=== PATIENT | female | born 1995 | race American Indian/Alaskan Native ===

== ENCOUNTER 2024-03-26 21:52 | Emergency (ER) | payer MEDICAID, SELFPAY ==
[2024-03-26 21:55] VITALS: BMI 20.7
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
[2024-03-26 22:13] VITALS: BP 142/92; PULSE 100; RESP 16; TEMP 36.7; O2SAT 99
== END 2024-03-26 22:17 ==
LOC: SERX 23:10
PROVIDERS: Emergency Provider Emergency Medicine
DX: Z02.89 Encounter for other administrative examinations (principal)
CPT/HCPCS: 99281

== ENCOUNTER 2024-07-26 00:30 | Emergency (ER) | payer MEDICAID, SELFPAY ==
[2024-07-26 00:39] VITALS: BP 124/82; PULSE 79; RESP 19; TEMP 36.9; O2SAT 97
--- NOTE | 2024-07-26 00:48 | XR_ITS ---
Examination: Complete OB ultrasound, less than 14 weeks, transabdominal Date and time of exam: July 26, 2024 0018 hrs. Indications: Onset vaginal bleeding beginning 4 days ago Technique: Obstetrical ultrasound images less than 14 weeks performed via transabdominal imaging Findings: Uterus 10.3 cm no endometrial stripe Intrauterine gestational sac 2.0 cm corresponds to 6 week 6 day gestational age No pole No cardiac activity Right ovary 3.3 cm arterial flow Left ovary 3.0 cm arterial flow Impression: Empty intrauterine gestational sac corresponding to 6 week 6 day gestational age Recommend transvaginal pelvic sonography follow-up to exclude embryonic demise
[2024-07-26 01:09] LABS: Collection Type, Urine Clean Catch
[2024-07-26 01:11] LABS: Basophils # (Auto) 0.1 Thou/mm3 (0.0-0.2); Basophils % (Auto) 0 % (0-2.5); Eosinophils # (Auto) 0.1 Thou/mm3 (0.0-0.5); Eosinophils % (Auto) 1 % (0-10); Hematocrit 42.1 % (36.0-46.0); Hemoglobin 14.5 g/dL (12.0-16.0); Immature Granulocytes % (Auto) 0 % (0-0); Immature Granulocytes Auto 0.03 Thou/mm3 (0.00-0.00); Lymphocytes # (Auto) 3.2 Thou/mm3 (1.0-4.8); Lymphocytes % (Auto) 24 % (10-50); Mean Corpuscular HGB Conc 34.4 g/dl (31.0-37.0); Mean Corpuscular Hemoglobin 32.2 pg (25.0-35.0); Mean Corpuscular Volume 93 fL (80-100); Monocytes # (Auto) 0.9 Thou/mm3 (0.0-0.8); Monocytes % (Auto) 6 % (0-12); Neutrophils # (Auto) 9.4 Thou/mm3 (1.8-7.7); Neutrophils % (Auto) 68 % (37-80); Nucleated Red Blood Cell % 0 /100 WBC (0); Platelet Count 300 Thou/mm3 (140-440); RDW Standard Deviation 45.4 fL (36.4-46.3); Red Blood Count 4.51 Miln/mm3 (4.00-5.20); White Blood Count 13.7 Thou/mm3 (3.6-11.0)
[2024-07-26 01:15] LABS: Bilirubin,Urine Negative (Negative); Blood,Urine 2+ (Negative); Clarity,Urine Turbid (Clear/Hazy); Color,Urine Lt-Yellow (Lt Yel-Yel); Culture Indicated,Urine Not Indicated; Glucose, Urine Negative (Negative); Ketones,Urine Negative (Negative); Leukocyte Esterase,Urine Positive (Negative); Nitrite,Urine Negative (Negative); Protein,Urine Negative (Neg - Trace); RBC,Urine 1 /hpf (0-3); Specific Gravity,Urine 1.017 (1.001-1.035); Squamous Epithelial Cell,Urine 14 /hpf (0-5); Urobilinogen,Urine Negative mg/dL (0.0-1.0); WBC,Urine 3 /hpf (0-5)
[2024-07-26 01:47] LABS: Alanine Aminotransferase 16 U/L (10-49); Albumin, Serum 4.7 gm/dL (3.5-5.0); Albumin/Globulin Ratio 1.3 (1.2-2.2); Alkaline Phosphatase 43 U/L (46-116); Anion Gap 10 (7-16); Aspartate Amino Transferase 27 U/L (0-34); BUN/Creatinine Ratio 7 Ratio (12-20); Bilirubin,Total 1.3 mg/dL (0.3-1.2); Blood Urea Nitrogen 5 mg/dL (9-23); Carbon Dioxide 26.1 mMol/L (20.0-31.0); Chloride 105 mMol/L (98-107); Creatinine (Component) 0.7 mg/dL (0.6-1.3); Globulin 3.5 gm/dL (2.3-3.5); Glucose 89 mg/dL (74-106); Osmolality,Calculated 277 (275-295); Sodium 141 mMol/L (136-145); Total Protein 8.2 gm/dL (5.7-8.2); eGFR > 60 See Note
--- NOTE | 2024-07-26 03:14 | PRELIM_ITS ---
Obstetric ultrasound (transabdominal ) with doppler and wave doppler spectral analysis. July 26, 2024 0148 hours Clinical history: Pain, bleeding; 9-10 weeks Technique: Real-time ultrasound was performed using Duplex scanning including arterial inflow, venous outflow, color and spectral Doppler analysis of both ovaries. Comparison: None. Findings: There is an intrauterine gestational sac corresponding to a gestational age 6 weeks and 6 days (MSD = 1.95 cm). The pole is not visualized. The yolk sac is not utilized. The uterus measures 10.3 x 4.0 x 7.9 cm. The right ovary measures 3.3 x 1.6 x 3.6 cm and is unremarkable. The left ovary measures 3.0 x 1.8 x 2.6 cm and is unremarkable. Normal blood flow in the bilateral ovaries with normal wave Doppler spectral analysis. There is no free fluid in the pelvis. Impression: An intrauterine gestational sac corresponding to a gestational age 6 weeks and 6 days. No pole or yolk sac visualized. Consider possible sac in the differential diagnosis. Please, correlate clinically. Consider short-term follow-up to assess for viability. No evidence of ovarian torsion. Report Electronically Signed By: Jonny Zelaya 07/26/2024 3:13:35 AM [EST]
[2024-07-26 03:47] VITALS: BP 132/77; PULSE 70; RESP 18; TEMP 36.7; O2SAT 99
[2024-07-26 04:05] VITALS: BP 127/65; PULSE 70; RESP 18; TEMP 36.7; O2SAT 99
--- NOTE | 2024-07-26 05:23 | EDNOTE_ITS ---
ED OB Contraction Preg RMI/HPI General Chief complaint: Vaginal Bleeding Stated complaint: VAGINAL BLEEDING Time Seen by Provider: 07/26/24 00:47 Arrival date/time: 07/26/24 00:30 28F at approximately 7-10 weeks (patient is not sure) and with no significant PMH presents to ED with 2 days of pelvic pain and vaginal bleeding/spotting. Limitations: no limitations Related Data Allergies Allergy/AdvReac Type Severity Reaction Status Date / Time No Known Allergies Allergy Verified 07/26/24 00:31 Review of Systems Review of Systems Systems Reviewed: All systems reviewed, normal except as documented Constitutional Constitutional: Reports system reviewed and no additional complaints, except as documented, Denies fever(s) and Denies headache(s) ENT Ears, Nose, Mouth, and Throat: Denies disequilibrium and Denies headache(s) Cardiovascular Cardiovascular: Reports system reviewed and no additional complaints, except as documented, Denies chest pain and Denies dyspnea Respiratory Respiratory: Reports system reviewed and no additional complaints, except as documented, Denies cough and Denies dyspnea Gastrointestinal Gastrointestinal: Reports system reviewed and no additional complaints, except as documented, Denies abdominal pain, Denies nausea and Denies vomiting Genitourinary Genitourinary: Reports as per HPI, Reports abnormal vaginal bleeding and Reports pelvic pain Neurologic Neurologic: Reports system reviewed and no additional complaints, except as documented, Denies confusion, Denies disequilibrium and Denies headache(s) Psychiatric Psychiatric: Denies confusion Past Medical History Social History SMOKING STATUS: Never smoker ED Exam General Limitations: Present no limitations General appearance: Present alert and in no apparent distress Head Head exam: Present atraumatic Eye Eye exam: Present normal appearance, PERRL and EOMI ENT ENT exam: Present normal exam, normal oropharynx and mucous membranes moist Neck Neck exam: Present normal inspection, full ROM and trachea midline Chest Chest inspection: Present normal inspection and symmetric chest wall rise Respiratory Respiratory exam: Present normal lung sounds bilaterally Cardiovascular Cardiovascular exam: Present regular rate, normal rhythm and normal heart sounds Abdominal Exam Abdominal exam: Present soft and normal bowel sounds Extremities Exam Extremities exam: Present normal inspection and full ROM Back Exam Back exam: Present normal inspection and full ROM Neurological Exam Neurological exam: Present alert, oriented X3 and CN II-XII intact Psychiatric Psychiatric exam: Present normal affect and normal mood Skin Skin exam: Present warm, dry, intact and normal color Course Quality Measures none Orders Category Date Time Status Administer Rhogam NOW Care 07/26/24 01:59 Completed US OB <= 14 weeks fetus Stat Exams 07/26/24 00:48 Taken Beta HCG,Quantitative Stat Lab 07/26/24 00:50 Completed CBC Stat Lab 07/26/24 00:50 Completed CMP [Comprehensive Metabolic Panel] Stat Lab 07/26/24 00:50 Completed RHOGAM [Rho(D) Immune Globulin] Stat Lab 07/26/24 00:50 Completed Type and Screen Stat Lab 07/26/24 00:50 Completed Urinalysis, C/S if Indicated Stat Lab 07/26/24 00:53 Completed Vital Signs Vital signs: Vital Signs Temperature 98.5 F 07/26/24 00:39 Pulse Rate 79 07/26/24 00:39 Respiratory Rate 19 07/26/24 00:39 Blood Pressure 124/82 07/26/24 00:39 Pulse Oximetry (%) 97 07/26/24 00:39 Oxygen Delivery Method Room Air 07/26/24 00:39 O2 at 97% on RA and WNLs Vaginal Bleeding MDM Narrative MDM Narrative: 28F at approximately 7-10 weeks (patient is not sure) and with no significant PMH presents to ED with 2 days of pelvic pain and vaginal bleeding/spotting. Physical exam reveals no ab tenderness. Patient is afebrile, calm, and alert. US reveals gestational sac but no pole/yolk sac. Beta HCG around 28k and WNLs. UA contaminated, but only blood in it. CMP unremarkable. Rh- so Rhogam given w/o neg reactions. Likely early vs miscarriage. [place]ake[place] Line Tender given. Patient data External records reviewed:: None Clinical information provided by:: patient Social determinants that could affect healthcare access:: none Patient has the following chronic illnesses:: none How is presenting disease/condition affected by chronic disease/condition?: no chronic disease Evaluation data The following diagnostics were reviewed and interpreted by me:: lab results and radiology exam(s) Lab and/or radiology exams considered but not ordered:: ordered Interpretation Summary: above Medications / Prescriptions Medications or Prescriptions considered but not ordered:: ordered Rhogam Medication administrations:: Rhogam given Consultations Consultation(s) initiated? (list below): No Diagnosis Vaginal Bleeding Differential Diagnosis: missed , threatened , dysfunctional uterine bleeding, menometrorrhagia, incomplete , ectopic without intrauterine and vaginal bleeding Most likely diagnosis given after review of the tests above:: vaginal bleeding Admission Indicated Admission indicated?: not indicated Admission Request Was there a request for admission?: No Disposition Plan Disposition Plan: Discharge Discharge Attestation Discharge Attestation: The patient and all family members were given an opportunity to ask questions and understood the discharge instructions. Discharge instructions specifically effects, indications for sooner follow up or return to the emergency department, and the expected course of current diagnosis. Patient condition: Stable Discharge Plan Plan Patient Disposition: HOME (Self Care) Disposition Comment: Stable Prescriptions/Referrals Referrals: No Primary/Family,Physician [Primary Care Provider] - In 1 week Problem List Clinical Impression: Vaginal bleeding Patient/Caregiver Discharge Instructions Education Materials: ED Possible Miscarriage ... Additional Instructions: Please follow-up with PCP /OBGYN within 24-48 hours and return immediately if symptoms worsen. Recommend repeat HCG +/- US in 48-72 hours to see trend. Here: 28,430 @ 00:50 on 07/26/24. Print Language: Guatemalan Stand Alone Forms: Patient Portal Info Letter AUDREY/TANNER Supervising Physician AUDREY/TANNER Supervising Physician: Dr. Bonilla
== END 2024-07-26 04:15 | disposition home or self-care (01) ==
PROVIDERS: Physician Assistant; Emergency Provider Emergency Medicine
DX: O20.9 Hemorrhage in early pregnancy, unspecified (principal); Z3A.10 10 weeks gestation of pregnancy
CPT/HCPCS: 36415; 36430; 76801; 80053; 81001; 84702; 85025; 86850; 86900; 86901; 99285; J2790

== ENCOUNTER 2024-08-12 18:02 | Emergency (ER) | payer MEDICAID, SELFPAY ==
[2024-08-12 18:11] VITALS: BP 137/84; PULSE 82; RESP 16; TEMP 36.9; O2SAT 99; BMI 32.8
--- NOTE | 2024-08-12 18:18 | XR_ITS ---
Examination: Complete OB ultrasound, less than 14 weeks, transabdominal Date and time of exam: August 12, 2024 and 1901 hours INDICATIONS: Vaginal bleeding and pelvic pain beginning 5 days ago Technique: Obstetrical ultrasound images less than 14 weeks performed via transabdominal imaging Findings: Uterus 10.4 cm endometrial stripe 0.8 cm No uterine mass or intrauterine gestation Right ovary 3.9 cm arterial flow Left ovary 3.9 cm arterial flow IMPRESSION: No uterine mass or intrauterine gestation
--- NOTE | 2024-08-12 18:19 | PD.EDRME ---
Rapid Medical Screening Exam RME Arrival date/time: 08/12/24 18:02 28 year old female present to ED for c/o vaginal bleeding/clots, + cramping, pt is currently I have greeted and performed a focused initial assessment of this patient. A comprehensive ED assessment and evaluation of the patient, analysis of all test results, and completion of the medical decision making process will be conducted by additional ED providers. Chief Complaint: Vaginal Bleeding Time Seen by Provider: 08/12/24 18:08 Vital signs: Vital Signs Temperature 98.4 F 08/12/24 18:11 Pulse Rate 82 08/12/24 18:11 Respiratory Rate 16 08/12/24 18:11 Blood Pressure 137/84 H 08/12/24 18:11 Pulse Oximetry (%) 99 08/12/24 18:11 Oxygen Delivery Method Room Air 08/12/24 18:11
[2024-08-12 18:43] LABS: Collection Type, Urine Voided
[2024-08-12 18:49] LABS: Basophils # (Auto) 0.1 Thou/mm3 (0.0-0.2); Basophils % (Auto) 0 % (0-2.5); Eosinophils % (Auto) 0 % (0-10); Hematocrit 37.2 % (36.0-46.0); Hemoglobin 13.1 g/dL (12.0-16.0); Immature Granulocytes % (Auto) 0 % (0-0); Immature Granulocytes Auto 0.04 Thou/mm3 (0.00-0.00); Lymphocytes % (Auto) 14 % (10-50); Mean Corpuscular HGB Conc 35.2 g/dl (31.0-37.0); Mean Corpuscular Hemoglobin 32.1 pg (25.0-35.0); Mean Corpuscular Volume 91 fL (80-100); Monocytes # (Auto) 1.2 Thou/mm3 (0.0-0.8); Monocytes % (Auto) 9 % (0-12); Neutrophils # (Auto) 10.7 Thou/mm3 (1.8-7.7); Neutrophils % (Auto) 76 % (37-80); Nucleated Red Blood Cell % 0 /100 WBC (0); Platelet Count 280 Thou/mm3 (140-440); RDW Standard Deviation 43.1 fL (36.4-46.3); Red Blood Count 4.08 Miln/mm3 (4.00-5.20); White Blood Count 14.1 Thou/mm3 (3.6-11.0)
[2024-08-12 19:04] LABS: Alanine Aminotransferase 8 U/L (10-49); Albumin, Serum 4.7 gm/dL (3.5-5.0); Albumin/Globulin Ratio 1.5 (1.2-2.2); Alkaline Phosphatase 42 U/L (46-116); Anion Gap 12 (7-16); Aspartate Amino Transferase 21 U/L (0-34); BUN/Creatinine Ratio 9 Ratio (12-20); Beta HCG,Quantitative 622 mIU/mL (<5.0); Bilirubin,Total 1.7 mg/dL (0.3-1.2); Blood Urea Nitrogen 6 mg/dL (9-23); Calcium 10.1 mg/dL (8.3-10.6); Calcium (Corrected) 10.1 mg/dL (8.5-10.1); Carbon Dioxide 25.1 mMol/L (20.0-31.0); Chloride 102 mMol/L (98-107); Creatinine (Component) 0.7 mg/dL (0.6-1.3); Estimated Creatinine Clearance 107.2 mL/min (>60); Globulin 3.2 gm/dL (2.3-3.5); Glucose 108 mg/dL (74-106); Osmolality,Calculated 276 (275-295); Sodium 139 mMol/L (136-145); Total Protein 7.9 gm/dL (5.7-8.2); eGFR > 60 See Note
[2024-08-12 19:08] LABS: Bilirubin,Urine Negative (Negative); Blood,Urine 3+ (Negative); Color,Urine Dark-Brown (Lt Yel-Yel); Glucose, Urine Negative (Negative); Ketones,Urine Trace (Negative); Leukocyte Esterase,Urine Positive (Negative); Nitrite,Urine Negative (Negative); PH,Urine 5.5 (5.0-7.0); Protein,Urine 1+ (Neg - Trace); RBC,Urine 8620 /hpf (0-3); Specific Gravity,Urine 1.019 (1.001-1.035); Squamous Epithelial Cell,Urine 56 /hpf (0-5); Urobilinogen,Urine Negative mg/dL (0.0-1.0); WBC,Urine 779 /hpf (0-5)
[2024-08-12 19:10] LABS: Clarity,Urine Turbid (Clear/Hazy)
--- NOTE | 2024-08-12 19:23 | PD.EDVAGBL ---
ED OB Contraction Preg RMI/HPI General Chief complaint: Vaginal Bleeding Stated complaint: VAG BLEEDING, LOWER ABD PAIN Time Seen by Provider: 08/12/24 18:08 Source: patient Arrival date/time: 08/12/24 18:02 Mode of arrival: ambulatory Limitations: no limitations RME / HPI RME / HPI Narrative: 08/12/24 18:02 28 year old female present to ED for c/o vaginal bleeding/clots, + cramping, pt is currently I have greeted and performed a focused initial assessment of this patient. A comprehensive ED assessment and evaluation of the patient, analysis of all test results, and completion of the medical decision making process will be conducted by additional ED providers. Dr. Bonilla?s Main ED Evaluation on 08/12/242031: 28-year-old female with a history of recent ED visit on 07/26/24 for similar, returns with ongoing lower abdominal cramping that began Wednesday and has persisted without relief. She reports associated persistent vaginal bleeding, which prompted her to seek reevaluation. Patient has a scheduled outpatient OB appointment on 08/16 but presents tonight due to worsening symptoms and concern over continued bleeding. Related Data Allergies Allergy/AdvReac Type Severity Reaction Status Date / Time No Known Allergies Allergy Verified 07/26/24 00:31 Review of Systems Review of Systems Systems Reviewed: All systems reviewed, normal except as documented Past Medical History Social History SMOKING STATUS: Never smoker ED Exam General Limitations: Present no limitations General appearance: Present alert and in no apparent distress Head Head exam: Present atraumatic Eye Eye exam: Present normal appearance, PERRL and EOMI ENT ENT exam: Present normal exam, normal oropharynx and mucous membranes moist Neck Neck exam: Present normal inspection, full ROM and trachea midline Chest Chest inspection: Present normal inspection and symmetric chest wall rise Respiratory Respiratory exam: Present normal lung sounds bilaterally Cardiovascular Cardiovascular exam: Present regular rate, normal rhythm and normal heart sounds Abdominal Exam Abdominal exam: Present soft and normal bowel sounds Extremities Exam Extremities exam: Present normal inspection and full ROM Back Exam Back exam: Present normal inspection and full ROM Neurological Exam Neurological exam: Present alert, oriented X3 and CN II-XII intact Psychiatric Psychiatric exam: Present normal affect and normal mood Skin Skin exam: Present warm, dry, intact and normal color Course Quality Measures none Orders Category Date Time Status US OB <= 14 weeks fetus Stat Exams 08/12/24 18:18 Completed ABO/RH Type Stat Lab 08/12/24 18:36 Completed Beta HCG,Quantitative Stat Lab 08/12/24 18:36 Completed CBC Stat Lab 08/12/24 18:36 Completed CMP [Comprehensive Metabolic Panel] Stat Lab 08/12/24 18:36 Completed INR [Prothrombin Time with INR] Stat Lab 08/12/24 18:36 Completed UA [Urinalysis] Stat Lab 08/12/24 16:26 Completed Vital Signs Vital signs: Vital Signs Temperature 98.4 F 08/12/24 18:11 Pulse Rate 82 08/12/24 18:11 Respiratory Rate 16 08/12/24 18:11 Blood Pressure 137/84 H 08/12/24 18:11 Pulse Oximetry (%) 99 08/12/24 18:11 Oxygen Delivery Method Room Air 08/12/24 18:11 Vaginal Bleeding MDM Narrative MDM Narrative: 28-year-old female with prior ED visit on 07/26/24 for vaginal bleeding and cramping returns with persistent symptoms. ultrasound today shows no intrauterine gestation or uterine mass. Bilateral ovaries with normal arterial flow. Beta-hCG has significantly decreased from 28,430 (07/26) to 622 (today), consistent with resolving early loss. Findings do not suggest ectopic . Patient declines for vaginal exam. She is well-appearing, not pale. Belly is soft, non-tender all overall. Patient is stable, without signs of acute distress. Counseling provided to patient and significant other regarding likely spontaneous , return precautions, and the importance of OB follow-up on 08/16/24. Patient understands and agrees with the plan. Scribe Attestation: Pat Zavala, am scribing for and in the presence of Dr. Bonilla. Provider Notation: Although this document has been carefully reviewed, there may still be some phonetic and other typographical errors. These errors are purely grammatical due to imperfections in the software program and should not be construed in any way to compromise the substance of the patient's medical care during this visit. Patient data External records reviewed:: [facility] previous records Clinical information provided by:: patient Social determinants that could affect healthcare access:: none Patient has the following chronic illnesses:: n/a How is presenting disease/condition affected by chronic disease/condition?: no chronic disease Evaluation data The following diagnostics were reviewed and interpreted by me:: lab results and radiology exam(s) Lab and/or radiology exams considered but not ordered:: n/a Interpretation Summary: I personally reviewed the radiology data and agree with the radiologist's interpretation. Examination: Complete OB ultrasound, less than 14 weeks, transabdominal Date and time of exam: August 12, 2024 and 1901 hours INDICATIONS: Vaginal bleeding and pelvic pain beginning 5 days ago Technique: Obstetrical ultrasound images less than 14 weeks performed via transabdominal imaging Findings: Uterus 10.4 cm endometrial stripe 0.8 cm No uterine mass or intrauterine gestation Right ovary 3.9 cm arterial flow Left ovary 3.9 cm arterial flow IMPRESSION: No uterine mass or intrauterine gestation Dictated By: Vinny Soto MD Medications / Prescriptions Medications or Prescriptions considered but not ordered:: n/a Medication administrations:: as above, if any Consultations Consultation(s) initiated? (list below): No Diagnosis Vaginal Bleeding Differential Diagnosis: missed , incomplete and vaginal bleeding Most likely diagnosis given after review of the tests above:: see clinical impression below Admission Indicated Admission indicated?: not indicated Admission Request Was there a request for admission?: No Disposition Plan Disposition Plan: Discharge Discharge Attestation Discharge Attestation: The patient and all family members were given an opportunity to ask questions and understood the discharge instructions. Discharge instructions specifically effects, indications for sooner follow up or return to the emergency department, and the expected course of current diagnosis. Patient condition: Stable Discharge Plan Plan Patient Disposition: HOME (Self Care) Patient condition on transfer: Stable Prescriptions/Referrals Referrals: No Primary/Family,Physician [Primary Care Provider] - In 1 week Problem List Clinical Impression: Vaginal bleeding Patient/Caregiver Discharge Instructions Print Language: North Korean Stand Alone Forms: Jackelin Award Info., Patient Portal Info Letter
[2024-08-12 20:09] VITALS: BP 124/81; PULSE 66; RESP 17; TEMP 36.8; O2SAT 95
--- NOTE | 2024-08-12 20:48 | PC.NURSE ---
PT WALKED OUT OF ROOM AND LEFT THE DEPARTMENT, ELOPED
== END 2024-08-12 20:51 | disposition home or self-care (01) ==
PROVIDERS: Physician Assistant; Emergency Provider Emergency Medicine
DX: O46.90 Antepartum hemorrhage, unspecified, unspecified trimester (principal); Z3A.00 Weeks of gestation of pregnancy not specified
CPT/HCPCS: 36415; 76801; 80053; 81001; 84702; 85025; 85610; 86900; 86901; 99284